=== PATIENT | female | born 1990 | race Caucasian/White ===

== ENCOUNTER 2016-06-30 03:00 | Emergency (ER) | payer MEDICAID ==
[2016-06-30 03:12] VITALS: BP 98/80; PULSE 78; RESP 18; TEMP 98.8; O2SAT 95
--- NOTE | 2016-06-30 03:26 | EDPHY ---
H & P Stated Complaint: ?18-20WK, ABD PAIN X2 DAYS, FROM [facility], ETOH TONIGHT Time Seen by Provider: 06/30/16 03:06 HPI/ROS: Chief Complaint: Abdominal pain, HPI: 25-year-old who is she believes about 18 weeks , has not had any care is coming in from the [facility] complaining of pelvic pain. Patient states she has been having intermittent pain started 2 days ago. Feels like cramping. Is worse this morning. She has not had any vaginal bleeding or discharge. She has not had an ultrasound confirmed intrauterine . No nausea or vomiting. No fevers or chills. She has been drinking alcohol this evening. Denies any other drug use. States her last menstrual period was sometime in February or March, she is not certain. She states she normally has irregular menstrual cycle. Currently pain is about a 2/10. ROS: 10 point Review of Systems is negative except as noted in the HPI. PMH: Denies Medications: None Allergies: None Social History: Positive smoking, positive alcohol, occasional marijuana Family History: non-contributory Physical Exam: Gen: Awake, Alert, No Distress HEENT: Nose: no rhinorrhea Eyes: PERRLA, EOMI Mouth: Moist mucosa Neck: Supple, no JVD Chest: nontender, lungs clear to auscultation Heart: S1, S2 normal, no murmur Abd: Soft, palpable uterus to approximately a 3 cm below the umbilicus, nontender, no guarding Back: no CVA tenderness, no midline tenderness Ext: no edema, non-tender Skin: no rash Neuro: CN II-XII intact, Sensation grossly intact, Strength 5/5 in bilateral upper and lower extremities - Personal History Current Tetanus/Diphtheria Vaccine: Yes - Medical/Surgical History Hx Asthma: No Hx Chronic Respiratory Disease: No Hx Diabetes: No Hx Cardiac Disease: No Hx Renal Disease: No Hx Cirrhosis: No Hx Alcoholism: No Hx HIV/AIDS: No Hx Splenectomy or Spleen Trauma: No Other PMH: HEART MUR-MUR - Social History Smoking Status: Current every day smoker Constitutional: Initial Vital Signs Temperature (C) 37.1 C 06/30/16 03:00 Heart Rate 78 06/30/16 03:00 Respiratory Rate 18 06/30/16 03:00 Blood Pressure 98/80 L 06/30/16 03:00 O2 Sat (%) 95 06/30/16 03:00 O2 Delivery Mode Room Air Medical Decision Making Procedures: Procedure: A limited transabdominal ultrasound was performed on this patient. The indication for the study was abdominal pain and to rule out an ectopic . She had a positive test. On the examination I found that there was an IUP. heart tones were 158. I did not see a significant amount of free fluid in the pelvis. Results of the exam: Positive for IUP. Images were saved on the ultrasound database. The examination was performed and interpreted by myself. ED Course/Re-evaluation: 25-year-old presenting from the [facility] complaining of low abdominal pain. She has a benign exam. She has had no vaginal bleeding. She has a documented IUP per my bedside ultrasound. This is consistent with a early 2nd term IUP. She has not had OB follow-up. Will discharge her with refer for outpatient follow-up. She has been counseled that she cannot drink alcohol or use any other drugs while . Patient is medically cleared to return to the [facility]. Departure - Departure Disposition: Home, Routine, Self-Care Clinical Impression: Abdominal pain during Condition: Good Instructions: Abdominal Pain in (ED) Additional Instructions: Follow up with OBGYN for care and further evaluation of this . Do not drink alcohol or use other drugs while as this will cause defects. Return to the emergency depart for increasing pain, vaginal bleeding, nausea, vomiting or any other concerns. Referrals: [facility],. [Clinic] - As per Instructions
== END 2016-06-30 03:35 | disposition home or self-care (01) ==
DX: O26.892 Other specified pregnancy related conditions, second trimester (principal); R10.2 Pelvic and perineal pain; F17.200 Nicotine dependence, unspecified, uncomplicated; Z3A.18 18 weeks gestation of pregnancy